=== PATIENT | male | born 1970 | race Caucasian/White ===

== ENCOUNTER 2017-08-02 12:15 | Day surgery (SDC) | payer OTHER ==
[2017-08-01 10:45] VITALS: BMI 30.7
[2017-08-02] MEDS ORDERED: Lidocaine 1% PF 5 ML VIAL ONE (13:10)
[2017-08-02] MEDS ORDERED: PROPOFOL 200 MG/20 ML VIAL ONE (13:10)
--- NOTE | 2017-08-02 13:35 | OP ---
PREOPERATIVE DIAGNOSIS: Dysphagia. DESCRIPTION OF PROCEDURE: After informed consent was obtained, the patient was placed in the left la teral decubitus position. Anesthesia was administered per the Anesthesia Department. Forward-viewin g endoscope was inserted into the esophagus under direct visualization with ease and passed to the se cond portion of the duodenum with ease. Second portion of the duodenum and duodenal bulb were normal . The pylorus, antrum, body, fundus, and cardia were normal. Retroflexion in the stomach showed a l arge hiatal hernia. The GE junction showed some ulceration and erosion consistent with grade C reflu x esophagitis. A 53 [place] was passed without any resistance. Reinsertion of the endoscope showed no post-dilatation changes. ASSESSMENT: 1. Large hiatal hernia. 2. Grade C reflux esophagitis. 3. Otherwise normal esophagogastroduodenoscopy. RECOMMENDATIONS: 1. Begin omeprazole 40 mg 1 p.o. daily. 2. Return to my office in 1 month's time.
== END 2017-08-02 14:08 | disposition home or self-care (01) ==
LOC: SDC 12:15
PROVIDERS: ATTEND Internal Medicine Gastroenterology
PROC: 0D758ZZ Dilation of Esophagus, Via Natural or Artificial Opening Endoscopic (ICD-10-PCS; principal; 2017-08-02)
DX: K21.0 Gastro-esophageal reflux disease with esophagitis (principal); K44.9 Diaphragmatic hernia without obstruction or gangrene
CPT/HCPCS: J2001; J2704

== ENCOUNTER → 2017-09-07 | Day surgery (SDC) | payer OTHER ==
--- NOTE | 2017-09-07 12:17 | RAD ---
ESOPHOGRAM: Air-contrast esophagus was performed. HISTORY: Dysphagia. History of stricture. The patient has had recent esophageal dilatation. FINDINGS: Swallowing mechanism and esophagus appear unremarkable. There is a sliding diaphragmatic hernia. Sp ontaneous reflux was demonstrated with the patient was placed recumbent. There is no evidence of str icture. The patient swallowed a 12 mm barium tablet which passed through the EG junction without dif ficulty. IMPRESSION: Small sliding diaphragmatic hernia with spontaneous reflux demonstrated. No evidence of esophagea l stricture identified. POS: [facility]
== END ==
LOC: RAD 09:18 → EDSTATUS 11:00
PROVIDERS: ATTEND Internal Medicine Gastroenterology
DX: R13.10 Dysphagia, unspecified (principal); K62.89 Other specified diseases of anus and rectum; K21.0 Gastro-esophageal reflux disease with esophagitis; Z98.890 Other specified postprocedural states
CPT/HCPCS: 74220

== ENCOUNTER 2017-09-13 09:09 | Day surgery (SDC) | payer OTHER ==
[2017-09-12 15:35] VITALS: BMI 32.5
--- NOTE | 2017-09-13 13:17 | OP ---
PREOPERATIVE DIAGNOSES: 1. Rectal pain. 2. Hematochezia. DESCRIPTION OF PROCEDURE: After informed consent was obtained, the patient was placed in the left la teral decubitus position. Anesthesia was administered per the Anesthesia Department. Forward-viewin g endoscope was inserted into the rectum after perianal inspection and rectal exam were normal and pa ssed to the cecum and into the ileum. The ileum, ileocecal valve, and appendiceal orifice and cecum were normal. The prep was excellent. The ascending, transverse, descending, sigmoid and rectum were normal except for left-sided diverticulosis coli. Retroflexion in the rectum showed small internal hemorrhoids. ASSESSMENT: 1. Left-sided diverticulosis coli. 2. Small internal hemorrhoids. 3. Otherwise normal ileal colonoscopy. RECOMMENDATIONS: 1. Daily fiber supplementation. 2. Repeat colonoscopy in 10 years.
[2017-09-13] MEDS ORDERED: PROPOFOL 200 MG/20 ML VIAL ONE (14:47)
[2017-09-13] MEDS ORDERED: Lidocaine 1% PF 5 ML VIAL ONE (14:47)
== END 2017-09-13 13:14 | disposition home or self-care (01) ==
LOC: SDC 09:09
PROVIDERS: ATTEND Internal Medicine Gastroenterology
PROC: 0DJD8ZZ Inspection of Lower Intestinal Tract, Via Natural or Artificial Opening Endoscopic (ICD-10-PCS; principal; 2017-09-13)
DX: K57.30 Diverticulosis of large intestine without perforation or abscess without bleeding (principal); K64.8 Other hemorrhoids; K92.1 Melena; K62.89 Other specified diseases of anus and rectum; Z98.890 Other specified postprocedural states
CPT/HCPCS: J2001; J2704